=== PATIENT | female | born 1980 | race Caucasian/White ===

== ENCOUNTER 2018-12-16 21:27 | Emergency (ER) | payer OTHER ==
[~2018-12-16] VITALS: Ht 165.1 cm; Wt 70.3 kg
[2018-12-16 21:32] VITALS: Ht 165.1 cm; Wt 70.3 kg
[2018-12-16 23:17] VITALS: BP 135/68
== END 2018-12-16 23:17 | disposition home or self-care (01) ==
LOC: ED 21:27
DX: M25.561 Pain in right knee (principal); G89.29 Other chronic pain; M79.89 Other specified soft tissue disorders; Z88.0 Allergy status to penicillin